=== PATIENT | female | born 1960 | race Caucasian/White ===

== ENCOUNTER 2018-03-09 22:56 | Emergency (ER) | payer BC, OTHER ==
[2018-03-09] MEDS ORDERED: Clindamycin 300 MG/2 ML VIAL ONE ×2 (23:30)
== END 2018-03-09 23:57 | disposition home or self-care (01) ==
LOC: SCSER 22:56
DX: L03.115 Cellulitis of right lower limb (principal); L03.116 Cellulitis of left lower limb; I10 Essential (primary) hypertension; Z79.899 Other long term (current) drug therapy
CPT/HCPCS: 96372; J3490